=== PATIENT | male | born 1985 | race African-American/Black ===

== ENCOUNTER 2016-11-28 21:19 | Emergency (ER) | payer MEDICAID, OTHER ==
[~2016-11-28] VITALS: Ht 172.7 cm; Wt 59.0 kg
[2016-11-29] MEDS ORDERED: KETOROLAC 60MG/2ML VIAL IM ONE
[2016-11-29] MEDS ORDERED: TETANUS, DIPHTHERIA, PERTUSSIS VAC/PF 0.5ML (>7YR OLD) IM ONE
[2016-11-29] MEDS ORDERED: BACITRACIN ZINC OINT UDPKT TOP ONE (00:15)
[2016-11-29] MEDS ORDERED: AMOXICILLIN/POTASSIUM CLAVULANATE 875/125MG TAB PO ONE (02:00)
[2016-11-29 04:30] VITALS: BP 109/56
== END 2016-11-29 04:05 | disposition home or self-care (01) ==
LOC: ER 21:30
DX: S92.064A Nondisplaced intraarticular fracture of right calcaneus, initial encounter for closed fracture (principal); S81.851A Open bite, right lower leg, initial encounter; S50.811A Abrasion of right forearm, initial encounter; F17.210 Nicotine dependence, cigarettes, uncomplicated; F12.10 Cannabis abuse, uncomplicated; Z71.6 Tobacco abuse counseling; Z87.828 Personal history of other (healed) physical injury and trauma; W17.89XA Other fall from one level to another, initial encounter; Y35.893A Legal intervention involving other specified means, suspect injured, initial encounter; W54.0XXA Bitten by dog, initial encounter; Y93.89 Activity, other specified; Y92.89 Other specified places as the place of occurrence of the external cause
CPT/HCPCS: 29515; 73610; 73630; 90471; 90715; 96372; 99284; 99406; J1885